=== PATIENT | male | born 1985 | race Caucasian/White ===

== ENCOUNTER 2024-11-01 17:34 | Emergency (ER) | payer OTHER, SELFPAY ==
[2024-11-01 17:49] VITALS: BP 158/95
[2024-11-01] MEDS: DUONEB 3 ML INH (19:54)
--- NOTE | 2024-11-01 19:57 | ED.GENMED ---
History of Present Illness
General
Chief Complaint: Cough
Source: patient
Exam Limitations: none
Time Seen by Provider: 11/01/24 19:10
History of Present Illness
History of Present Illness:
39-year-old male presents with ongoing cough for the past 6 to 8 weeks. He was treated with doxycycline at the beginning of his illness. He got 90% better however it slowly returned. He saw his family doctor last week and is just about to finish
a weeks worth of Levaquin and a steroid taper. He notes no improvement. Denies any current fever. He notes he has a headache from coughing. No hemoptysis. No leg swelling or calf pain. No prior history of asthma. He is concerned about
potential pertussis exposure. He believes he is up-to-date with his vaccines however. He is healthy otherwise. No other complaints.
Past History
Past History
ED Past Medical History: Other (Diverticulitis, internal hemorrhoids, Graves' disease/Erika's)
ED Past Surgical History: Orthopedic (Shoulder surgery)
Social History
Tobacco: Non-smoker
Alcohol: Occasional
Drug: None
Personal: Single
Living: with family
Family History
Family History: Negative Diabetes, Hypertension, CAD, Asthma or Sudden
Phy Exam
Physical Exam
Physical Exam:
General: Well-appearing nontoxic male no acute respiratory distress
HEENT: Normocephalic atraumatic
Heart: Regular rate and rhythm no murmur
Lungs: Clear no wheeze
Extremities: No cyanosis or edema
Course
Orders/Labs/Results
Orders:
Orders
11/01/24 17:51
Chest [CR Chest - 2 Views ] Urgent
Comment:
Reason For Exam: cough/sob
11/01/24 19:25
Ipratropium/Albuterol Sulfate [Duoneb] 3 ml INH R NOW STA
11/01/24 19:48
Add On- LAB Urgent
Tests Added?: pertussis swab
11/01/24 19:56
Complete Blood Count/With Diff Urgent
Comprehensive Metabolic Panel Urgent
Bordetella PCR Routine
ORALIA Source: [facility] [place]
Specimen Description:
Comment: ADD ON PER ER
Abnormal Lab Results
11/01/24
19:56
WBC 11.1 H 10^3/uL
(4.8-10.8)
RBC 4.41 L 10^6/uL
(4.70-6.10)
MCH 32.7 H pg
(27.0-31.0)
MPV 10.7 H fL
(7.4-10.4)
Absolute Neuts (auto) 6.8 H 10^3/uL
(1.4-6.5)
Absolute Monos (auto) 0.9 H 10^3/uL
(0.1-0.6)
BUN 22 H mg/dl
(9-20)
Glucose 107 H mg/dl
(70-99)
Alkaline Phosphatase 37 L U/L
(38-126)
11/01/24 19:56
11/01/24 19:56
Vital Signs
Initial and Last Documented VS:
Initial Vital Signs
Temp Pulse Resp BP Pulse Ox
98.7 F 89 22 158/95 99
11/01/24 17:49 11/01/24 17:49 11/01/24 17:49 11/01/24 17:49 11/01/24 17:49
Last Documented Vital Signs
Temp Pulse Resp BP Pulse Ox
98.7 F 79 18 139/92 97
11/01/24 17:49 11/01/24 21:03 11/01/24 21:03 11/01/24 21:03 11/01/24 21:03
MDM/Problems Addressed
Differential Diagnosis Includes:
Ongoing cough. Question bronchitis versus post bronchitic cough versus pneumonia. No risk factors for PE. Recent test for COVID was negative. Patient concerned about potential pertussis exposure. This test is pending. Chest x-ray pending will
order DuoNeb as well
*Critical Care Note
Total Time (30-74mins, 75-104mins- exclusive of procedures): Not Applicable
Update Note
Update Note:
Chest x-ray is clear no pneumonia. Patient feeling much better after nebulizer treatment. Pertussis test is pending. I suspect infectious phase is over and he is dealing with a post bronchitic cough. Will prescribe nebulizer solution and sent
home with the machine and add to his steroid taper. Will also add cough medicine if needed for nighttime use
ED Attending Note
-
Portions of this chart may have been created with voice recognition software.� Occasional wrong word or��sound alike� substitutions may have occurred due to the inherent limitations of voice recognition software.
Discharge Plan
Departure
Patient Disposition: Home (Routine Discharge)
Date of Disposition: 11/01/24
Time of Disposition: 21:40
Patient with high blood pressure during this ER visit?: No
Discharge Problem:
Cough
Prescriptions:
New
prednisone 10 mg Tablet
See Rx Instructions .ROUTE .COMPLEX Qty: 45 0RF
Rx Instructions:
Take By Mouth:
50 mg daily x3 days, 40 mg daily x3 days,
30 mg daily x3 days, 20 mg daily x3 days,
10 mg daily x3 days
ipratropium-albuterol 0.5 mg-3 mg(2.5 mg base)/3 mL solution for nebulization
3 ml inhalation Q8H PRN (Reason: wheezing) Qty: 90 0RF
promethazine-codeine 6.25-10 mg/5 mL syrup
10 ml PO Q6H PRN (Reason: Cough) Qty: 118 0RF
Referrals:
Vignesh Lemus, [Family Provider] -
Activity Restrictions/Additional Instructions:
Rest. Drink plenty of fluids. Use steroid as directed and nebulizer as needed. Use cough medicine as needed for severe cough. You should receive a call if any of your other testing is positive
Interventions
Interventions:
*Risk Screen - Suicide Last Done: 11/01/24 17:42
*Neglect/Abuse Screening Last Done: 11/01/24 17:42
ED- Fall Risk Assessment Last Done: 11/01/24 20:26
ED- Pulmonary Assessment Last Done: 11/01/24 20:26
Discharge Date and Time
Print Language: KINYARWANDA
[2024-11-01 20:19] LABS: % Basophils 0.4 % (0-2); % Eosinophils 4.3 % (0-6); % Immature Granulocytes 0.4 % (0-0.5); % Lymphocytes 25.5 % (20.5-51.1); % Monocytes 8.3 % (1.7-9.3); % Neutrophils 61.1 % (42.2-75.2); Absolute Basophils 0.1 10^3/uL (0-0.2); Absolute Eosinophils 0.5 10^3/uL (0-0.7); Absolute Lymphocytes 2.8 10^3/uL (1.2-3.4); Absolute Monocytes 0.9 10^3/uL (0.1-0.6); Absolute Neutrophils 6.8 10^3/uL (1.4-6.5); Hematocrit 41.2 % (39.0-52.0); Hemoglobin 14.4 g/dL (13.0-18.0); Mean Corpuscular Hgb 32.7 pg (27.0-31.0); Mean Corpuscular Volume 93.4 fL (80.0-94.0); Mean Platelet Volume 10.7 fL (7.4-10.4); Nucleated Red Blood Cells % 0 % (-); Platelet Count 228 10^3/uL (130-400); Red Blood Cell Count 4.41 10^6/uL (4.70-6.10); White Blood Cell Count 11.1 10^3/uL (4.8-10.8)
[2024-11-01 20:36] LABS: ALT (SGPT) 36 U/L (0-50); AST (SGOT) 25 U/L (17-59); Albumin 4.7 g/dl (3.5-5.0); Alkaline Phosphatase 37 U/L (38-126); Blood Urea Nitrogen 22 mg/dl (9-20); Calcium 9.5 mg/dl (8.4-10.2); Carbon Dioxide 22 mmol/L (22-30); Chloride 104 mmol/L (98-107); Glucose 107 mg/dl (70-99); Sodium 139 mmol/L (135-145); Total Bilirubin 0.3 mg/dl (0.2-1.3); Total Protein 7.5 g/dl (6.3-8.2); eGFR > 60.00
[2024-11-01 21:03] VITALS: BP 139/92
== END 2024-11-01 22:47 | disposition home or self-care (01) ==
LOC: EMR 17:34
PROVIDERS: Physician Assistant; EMERGENCY PHYSICIAN Emergency Medicine; FAMILY PHYSICIAN Family Medicine
DX: R05.9 Cough, unspecified (principal); E06.3 Autoimmune thyroiditis; Z82.49 Family history of ischemic heart disease and other diseases of the circulatory system; Z87.19 Personal history of other diseases of the digestive system
CPT/HCPCS: 99283; 94640; 71046; 80053; 85025; 87798

== ENCOUNTER 2024-12-23 13:14 | Emergency (ER) | payer OTHER, SELFPAY ==
[2024-12-23 13:21] VITALS: BP 135/98
--- NOTE | 2024-12-23 15:18 | ED.GENMED ---
History of Present Illness
General
Chief Complaint: Musculo-Skeletal Complaint
Source: patient
Exam Limitations: none
Time Seen by Provider: 12/23/24 15:17
Nursing documentation reviewed up to this point in time: agreed with
History of Present Illness
History of Present Illness:
39 y/o M with h/o asthma, GERD, diverticulitis
R shoulder pain after mechanical trip and fall while in his attick about 2 hours ago
no numbnes/tingling/weknaess in the arm
no other complaints other than shoulder pain
Pain was worse with extension past 90 degrees.
He has had previous labrum repair in 2002 at [facility] in the same shoulder. He has no neck, head, back, chest pain
Past History
Past History
ED Past Medical History: Other (Diverticulitis, internal hemorrhoids, Graves' disease/Erika's)
ED Past Surgical History: Orthopedic (Shoulder surgery)
Social History
Tobacco: Non-smoker
Alcohol: Occasional
Drug: None
Personal: Single
Living: with family
Family History
Family History: Negative Diabetes, Hypertension, CAD, Asthma or Sudden
Review of Systems
Review of Systems
Allergies reviewed?: Yes
All Other Systems: Not applicable
Phy Exam
Physical Exam
Physical Exam:
GENERAL: Alert , in no apparent distress, comfortable at rest
HEAD: NCAT
CV: 2+ radial pulse
Neck: Nontender, full painless range of motion
NEUROLOGICAL: Alert and oriented, no focal neuro deficits, , 5/5 strength, sensation intact, \\
MUSCULOSKELETAL: Normal inspection of the right shoulder. Patient has some tenderness to the anterior humeral head. He has painful extension past 90 degrees. He is able to touch the opposite shoulder. There is no distal tenderness. Sensation
intact.
PSYCH: Normal and appropriate interaction.
Course
Orders/Labs/Results
Orders:
Orders
12/23/24 13:23
Shoulder, Right, Trauma [CR Shoulder, Trauma - Right] Urgent
Comment:
Reason For Exam: injury
Vital Signs
Pulse: 85
Blood pressure: 138/100
Initial and Last Documented VS:
Initial Vital Signs
Temp Pulse Resp BP Pulse Ox
36.6 C 93 16 135/98 98
12/23/24 13:21 12/23/24 13:21 12/23/24 13:21 12/23/24 13:21 12/23/24 13:21
Last Documented Vital Signs
Temp Pulse Resp BP Pulse Ox
36.6 C 93 16 135/98 98
12/23/24 13:21 12/23/24 13:21 12/23/24 13:21 12/23/24 13:21 12/23/24 13:21
MDM/Problems Addressed
Differential Diagnosis Includes:
SHOULDER FRACTURE, SPRAIN, DISLOCATION
MDM/Problems Addressed:
39 y/o M R hand dominant
here with R shoulder pain after mechanical trip and fall
No head strike, no other complaints other than right shoulder pain. Patient had pain worse with extension of his arm over his head. He is able to touch the opposite shoulder. He has a normal neurovascular exam. He has tenderness to the anterior
humeral head, has no dislocation. Distally nontender. X-ray independently reviewed by me and I appreciate the glenoid fracture. Patient was immobilized with a sling. Ortho follow-up instructions given. Tylenol for pain. Also counseled patient
on elevated blood pressure likely due to pain. He will get it repeated next week
*Critical Care Note
Total Time (30-74mins, 75-104mins- exclusive of procedures): Not Applicable
ED Attending Note
-
Portions of this chart may have been created with voice recognition software.� Occasional wrong word or��sound alike� substitutions may have occurred due to the inherent limitations of voice recognition software.
Discharge Plan
Departure
Patient Disposition: Home (Routine Discharge)
Date of Disposition: 12/23/24
Time of Disposition: 15:25
Patient with high blood pressure during this ER visit?: No
Condition: Fair
Covid-19: Not Applicable
Discharge Problem:
Fracture of right shoulder
Instructions: Shoulder or upper arm fracture
Prescriptions:
No Action
prednisone 10 mg Tablet
See Rx Instructions .ROUTE .COMPLEX Qty: 45 0RF
Rx Instructions:
Take By Mouth:
50 mg daily x3 days, 40 mg daily x3 days,
30 mg daily x3 days, 20 mg daily x3 days,
10 mg daily x3 days
ipratropium-albuterol 0.5 mg-3 mg(2.5 mg base)/3 mL solution for nebulization
3 ml inhalation Q8H PRN (Reason: wheezing) Qty: 90 0RF
promethazine-codeine 6.25-10 mg/5 mL syrup
10 ml PO Q6H PRN (Reason: Cough) Qty: 118 0RF
codeine-guaifenesin 10-200 mg/5 mL liquid
5 ml PO Q6H PRN (Reason: Cough) Qty: 473 0RF
Referrals:
Duncan Angulo MD [Active] - Follow up in 5-7 days (ORTHO)
Activity Restrictions/Additional Instructions:
YOU BROKE YOUR GLENOID
KEEP YOUR ARM IMMOBILIZED UNTIL YOU FOLLOW UP WITH ORTHOPEDICS
CALL FOR AN APPOINTMENT
TYLENOL EVERY 6 HOURS FOR PAIN NEEDED
ICE OFF AND ON
RETURN FOR: NUMBNESS/TINGLING/WEAKNESS IN THE ARM, SEVERE PAIN OR ANY CONCERNS.
Interventions
Interventions:
*Risk Screen - Suicide Last Done: 12/23/24 13:21
*Neglect/Abuse Screening Last Done: 12/23/24 13:21
Discharge Date and Time
Print Language: MARSHALLESE
== END 2024-12-23 15:56 | disposition home or self-care (01) ==
LOC: EMR 13:14
PROVIDERS: EMERGENCY PHYSICIAN Emergency Medicine; FAMILY PHYSICIAN Family Medicine
DX: S42.141A Displaced fracture of glenoid cavity of scapula, right shoulder, initial encounter for closed fracture (principal); W01.0XXA Fall on same level from slipping, tripping and stumbling without subsequent striking against object, initial encounter; R03.0 Elevated blood-pressure reading, without diagnosis of hypertension; J45.909 Unspecified asthma, uncomplicated; K21.9 Gastro-esophageal reflux disease without esophagitis; E06.3 Autoimmune thyroiditis
CPT/HCPCS: 99283; 73030

== ENCOUNTER → 2024-12-26 13:44 | Outpatient (REF) | payer OTHER, SELFPAY | LOC: HWRAD 13:44 | PROVIDERS: ATTENDING PHYSICIAN Orthopaedic Surgery Hand Surgery; FAMILY PHYSICIAN Family Medicine | DX: S42.144A Nondisplaced fracture of glenoid cavity of scapula, right shoulder, initial encounter for closed fracture (principal) | CPT/HCPCS: 73200 ==